=== PATIENT | male | born 1950 | race Caucasian/White ===

== ENCOUNTER 2018-05-19 08:31 | Inpatient (IN) | payer OTHER, MEDICARE ==
[~2018-05-19] VITALS: Ht 165.1 cm; Wt 70.4 kg
[2018-05-19 08:34] VITALS: Ht 165.1 cm; Wt 70.4 kg
[2018-05-19 09:22] LABS: BASOPHIL % 0.1 % (0-2); PLATELET COUNT 321 x10^3mcL (130-400); RED CELL DISTRIBUTION WIDTH 13.5 % (11.5-14.5)
[2018-05-19 09:29] LABS: CALCIUM 8.5 mg/dL (8.5-10.1); CARBON DIOXIDE 25.6 mmol/L (21-32); CHLORIDE SERUM 100 mmol/L (98-107); CREATININE SERUM 0.8 mg/dL (0.7-1.3); GFR1 > 60 mL/min; GLUCOSE SERUM 167 mg/dL (74-106); POTASSIUM SERUM 3.3 mmol/L (3.5-5.1); SODIUM SERUM 135 mmol/L (136-145)
[2018-05-19 09:33] LABS: ALBUMIN 3.4 g/dL (3.4-5.0); ALKALINE PHOSPHATASE 74 U/L (46-116); ALT/SGPT 18 U/L (16-63); AST/SGOT 20 U/L (15-37); BILIRUBIN TOTAL 0.42 mg/dL (0.20-1.00); CHOLESTEROL 191 mg/dL (<200); MAGNESIUM 1.6 mg/dL (1.8-2.4); PHOSPHOROUS 2.7 mg/dL (2.5-4.9); TOTAL PROTEIN, SERUM 7.7 g/dL (6.4-8.2)
[2018-05-19 09:34] LABS: HDL CHOLESTEROL 95 mg/dL (40-60)
[2018-05-19] MEDS ORDERED: NEU300 PO (10:06)
[2018-05-19] MEDS ORDERED: AMOXICILLIN500 MG PO (10:07)
[2018-05-19] MEDS ORDERED: GLUCOTROL10 MG PO (10:09)
[2018-05-19] MEDS ORDERED: PLA75 PO (10:10)
[2018-05-19] MEDS ORDERED: LOSARTAN POTASS50 M1 PO (10:10)
[2018-05-19] MEDS ORDERED: HYDROCHLOROTH12.5 M2 PO (10:12)
[2018-05-19 13:10] LABS: microscopic required? YES; urine erythrocyte TRACE (NEGATIVE)
[2018-05-19 17:19] LABS: CHOLESTEROL/HDL RATIO 2.1
[2018-05-19 17:24] LABS: T3 TOTAL 0.93 ng/mL
[2018-05-19 17:26] LABS: FREE T4 0.92 ng/dL (0.76-1.46); FREE THYROXINE INDEX 2.6 ug/dL (1.4-4.5); T4(THYROXINE) 7.1 ug/dL (4.7-13.3)
[2018-05-19 18:36] VITALS: BP 165/94
[2018-05-19 20:21] VITALS: BP 152/84
[2018-05-19 20:27] LABS: AMPHETAMINE QUAL UR NONE DETECTED (See below)
[2018-05-20] VITALS (7 sets, daily range): BP systolic 114–189; BP diastolic 81–102
[2018-05-20 15:20] LABS: CALCIUM 8.5 mg/dL (8.5-10.1); CHLORIDE SERUM 99 mmol/L (98-107); GFR1 > 60 mL/min; GLUCOSE SERUM 282 mg/dL (74-106); MAGNESIUM 1.7 mg/dL (1.8-2.4); PHOSPHOROUS 2.4 mg/dL (2.5-4.9); POTASSIUM SERUM 4.3 mmol/L (3.5-5.1); SODIUM SERUM 134 mmol/L (136-145)
[2018-05-20 15:25] LABS: BASOPHIL % 0.4 % (0-2); PLATELET COUNT 335 x10^3mcL (130-400); RED CELL DISTRIBUTION WIDTH 13.5 % (11.5-14.5)
[2018-05-21 05:49] VITALS: BP 171/95
[2018-05-21 06:45] LABS: BASOPHIL % 0.4 % (0-2); PLATELET COUNT 365 x10^3mcL (130-400); RED CELL DISTRIBUTION WIDTH 13.9 % (11.5-14.5)
[2018-05-21 07:14] LABS: CALCIUM 8.6 mg/dL (8.5-10.1); CARBON DIOXIDE 26.5 mmol/L (21-32); CHLORIDE SERUM 100 mmol/L (98-107); GFR1 > 60 mL/min; GLUCOSE SERUM 216 mg/dL (74-106); MAGNESIUM 1.7 mg/dL (1.8-2.4); PHOSPHOROUS 2.4 mg/dL (2.5-4.9); POTASSIUM SERUM 4.1 mmol/L (3.5-5.1); SODIUM SERUM 135 mmol/L (136-145)
[2018-05-21 09:53] VITALS: BP 165/83
[2018-05-21 12:10] VITALS: BP 180/94
[2018-05-21] MEDS ORDERED: ATORVASTATIN CA40 M1 PO (13:26)
[2018-05-21] MEDS ORDERED: COZ50 PO (13:26)
[2018-05-21] MEDS ORDERED: HYD25 PO (13:27)
[2018-05-21] MEDS ORDERED: PRE20 PO (13:29)
[2018-05-21 14:17] VITALS: BP 168/78
[2018-05-21 14:26] VITALS: BP 168/78
[2018-05-21 15:04] VITALS: BP 154/77
== END 2018-05-21 15:40 | disposition home or self-care (01) | DRG 53 ==
LOC: ED 08:31 → DU 17:14
PROVIDERS: Emergency Medicine; Internal Medicine; ADMIT Family Medicine
DX: R56.9 Unspecified convulsions (principal); N17.0 Acute kidney failure with tubular necrosis; G93.40 Encephalopathy, unspecified; H49.02 Third [oculomotor] nerve palsy, left eye; E11.21 Type 2 diabetes mellitus with diabetic nephropathy; E87.1 Hypo-osmolality and hyponatremia; E83.42 Hypomagnesemia; E87.6 Hypokalemia; H02.402 Unspecified ptosis of left eyelid; Z59.0 Homelessness; Z68.26 Body mass index [BMI] 26.0-26.9, adult; Z79.84 Long term (current) use of oral hypoglycemic drugs; Z86.73 Personal history of transient ischemic attack (TIA), and cerebral infarction without residual deficits
CPT/HCPCS: 82962; 83880; 84439; 87804; 97116-GP; 97530-GP; A9577; J0360; J3475; J7030; J7512; Q0092

== ENCOUNTER 2018-05-25 01:29 | Inpatient (IN) | payer OTHER, MEDICARE ==
[~2018-05-25] VITALS: Ht 165.1 cm; Wt 67.1 kg
[~2018-05-25 01:29] MED LIST: AMOXICILLIN500 MG PO; ATORVASTATIN CA40 M1 PO; COZ50 PO; GLUCOTROL10 MG PO; HYD25 PO; HYDROCHLOROTH12.5 M2 PO; LOSARTAN POTASS50 M1 PO; NEU300 PO; PLA75 PO; PRE20 PO
[2018-05-25 01:37] VITALS: Ht 165.1 cm; Wt 67.1 kg
[2018-05-25 02:18] LABS: BASOPHIL % 0.1 % (0-2); PLATELET COUNT 398 x10^3mcL (130-400); RED CELL DISTRIBUTION WIDTH 13.7 % (11.5-14.5)
[2018-05-25 03:03] LABS: ALBUMIN 3.7 g/dL (3.4-5.0); ALKALINE PHOSPHATASE 67 U/L (46-116); ALT/SGPT 26 U/L (16-63); AST/SGOT 36 U/L (15-37); BILIRUBIN TOTAL 0.51 mg/dL (0.20-1.00); CARBON DIOXIDE 30.1 mmol/L (21-32); CHLORIDE SERUM 101 mmol/L (98-107); GFR1 > 60 mL/min; POTASSIUM SERUM 3.1 mmol/L (3.5-5.1); SODIUM SERUM 138 mmol/L (136-145)
[2018-05-25 03:06] LABS: TOTAL PROTEIN, SERUM 8.3 g/dL (6.4-8.2)
[2018-05-25 03:07] LABS: GLUCOSE SERUM 41 mg/dL (74-106)
[2018-05-25 07:37] LABS: CHOLESTEROL/HDL RATIO 1.7
[2018-05-25 08:57] VITALS: BP 162/86
[2018-05-25 12:18] VITALS: BP 147/87
[2018-05-25 17:57] LABS: microscopic required? NO
[2018-05-25 18:20] LABS: urine erythrocyte NEGATIVE (NEGATIVE)
[2018-05-25 18:33] LABS: AMPHETAMINE QUAL UR NONE DETECTED (See below)
[2018-05-25 18:48] VITALS: BP 144/80
[2018-05-25 20:29] VITALS: BP 141/90
[2018-05-26 05:24] VITALS: BP 148/90
[2018-05-26 06:36] LABS: CALCIUM 8.7 mg/dL (8.5-10.1); CARBON DIOXIDE 28.9 mmol/L (21-32); CHLORIDE SERUM 103 mmol/L (98-107); CREATININE SERUM 0.9 mg/dL (0.7-1.3); GFR1 > 60 mL/min; GLUCOSE SERUM 182 mg/dL (74-106); MAGNESIUM 1.5 mg/dL (1.8-2.4); PHOSPHOROUS 2.5 mg/dL (2.5-4.9); POTASSIUM SERUM 3.6 mmol/L (3.5-5.1); SODIUM SERUM 137 mmol/L (136-145)
[2018-05-26 07:00] LABS: BASOPHIL % 0.4 % (0-2); PLATELET COUNT 359 x10^3mcL (130-400); RED CELL DISTRIBUTION WIDTH 13.3 % (11.5-14.5)
[2018-05-26 08:40] VITALS: BP 143/80
[2018-05-26 12:30] VITALS: BP 142/67
[2018-05-26 17:00] VITALS: BP 161/84
[2018-05-26 18:45] VITALS: BP 148/73
[2018-05-26 20:35] VITALS: BP 138/62
[2018-05-27 05:31] VITALS: BP 146/81
[2018-05-27 06:06] LABS: BASOPHIL % 0.2 % (0-2); PLATELET COUNT 325 x10^3mcL (130-400); RED CELL DISTRIBUTION WIDTH 13.6 % (11.5-14.5)
[2018-05-27 06:39] LABS: CALCIUM 8.2 mg/dL (8.5-10.1); CARBON DIOXIDE 28.9 mmol/L (21-32); CHLORIDE SERUM 105 mmol/L (98-107); CREATININE SERUM 0.9 mg/dL (0.7-1.3); GFR1 > 60 mL/min; GLUCOSE SERUM 144 mg/dL (74-106); MAGNESIUM 1.6 mg/dL (1.8-2.4); PHOSPHOROUS 2.3 mg/dL (2.5-4.9); POTASSIUM SERUM 4.1 mmol/L (3.5-5.1); SODIUM SERUM 141 mmol/L (136-145)
[2018-05-27 09:59] VITALS: BP 172/90
[2018-05-27 13:10] VITALS: BP 171/103
[2018-05-27 15:10] VITALS: BP 166/94
[2018-05-27 18:31] VITALS: BP 173/94
[2018-05-27 21:19] VITALS: BP 157/86
[2018-05-28 05:41] VITALS: BP 154/78
[2018-05-28 06:25] LABS: BASOPHIL % 0.4 % (0-2); PLATELET COUNT 346 x10^3mcL (130-400); RED CELL DISTRIBUTION WIDTH 13.1 % (11.5-14.5)
[2018-05-28 06:43] LABS: CALCIUM 8.4 mg/dL (8.5-10.1); CARBON DIOXIDE 29.2 mmol/L (21-32); CHLORIDE SERUM 104 mmol/L (98-107); CREATININE SERUM 0.8 mg/dL (0.7-1.3); GFR1 > 60 mL/min; GLUCOSE SERUM 79 mg/dL (74-106); MAGNESIUM 1.7 mg/dL (1.8-2.4); PHOSPHOROUS 2.9 mg/dL (2.5-4.9); POTASSIUM SERUM 3.4 mmol/L (3.5-5.1); SODIUM SERUM 141 mmol/L (136-145)
[2018-05-28 08:02] VITALS: BP 162/84
[2018-05-28 12:06] VITALS: BP 148/78
[2018-05-28 16:25] VITALS: BP 141/72
[2018-05-28 21:07] VITALS: BP 139/61
[2018-05-29 05:47] VITALS: BP 164/86
[2018-05-29 07:22] LABS: CALCIUM 8.5 mg/dL (8.5-10.1); CARBON DIOXIDE 29.7 mmol/L (21-32); CHLORIDE SERUM 104 mmol/L (98-107); CREATININE SERUM 0.8 mg/dL (0.7-1.3); GFR1 > 60 mL/min; GLUCOSE SERUM 132 mg/dL (74-106); SODIUM SERUM 140 mmol/L (136-145)
[2018-05-29 07:28] LABS: BASOPHIL % 0.6 % (0-2); PLATELET COUNT 386 x10^3mcL (130-400); RED CELL DISTRIBUTION WIDTH 12.7 % (11.5-14.5)
[2018-05-29 08:11] VITALS: BP 144/93
[2018-05-29 12:40] VITALS: BP 150/81
[2018-05-29 17:00] VITALS: BP 133/87
[2018-05-29 21:55] VITALS: BP 157/79
[2018-05-30 06:18] VITALS: BP 173/97
[2018-05-30 06:47] LABS: CALCIUM 8.6 mg/dL (8.5-10.1); CHLORIDE SERUM 99 mmol/L (98-107); CREATININE SERUM 0.8 mg/dL (0.7-1.3); GFR1 > 60 mL/min; GLUCOSE SERUM 254 mg/dL (74-106); POTASSIUM SERUM 4.4 mmol/L (3.5-5.1); SODIUM SERUM 136 mmol/L (136-145)
[2018-05-30 07:03] LABS: BASOPHIL % 0.5 % (0-2); PLATELET COUNT 378 x10^3mcL (130-400); RED CELL DISTRIBUTION WIDTH 13.5 % (11.5-14.5)
[2018-05-30 09:14] VITALS: BP 175/88
[2018-05-30 09:54] VITALS: BP 175/88
[2018-05-30] MEDS ORDERED: COZAAR100 MG PO (09:56)
[2018-05-30] MEDS ORDERED: KEPPRA500 MG PO (09:56)
[2018-05-30 10:30] VITALS: BP 180/90
[2018-05-30 10:35] VITALS: BP 184/94
== END 2018-05-30 10:54 | disposition left against medical advice (07) | DRG 420 ==
LOC: ED 01:29 → DU 06:45 → MU 06:45 → EDBEDREQTM 06:49 → EDBEDREQ 06:49 → EDBEDREQSVC 06:54 → EDBEDREQTM 06:54 → EDBEDREQ 06:54 → MU 07:52 → DU 08:56
PROVIDERS: Emergency Medicine; Family Medicine; ADMIT Internal Medicine
DX: E11.649 Type 2 diabetes mellitus with hypoglycemia without coma (principal); N17.0 Acute kidney failure with tubular necrosis; G93.41 Metabolic encephalopathy; H49.02 Third [oculomotor] nerve palsy, left eye; E86.0 Dehydration; E05.00 Thyrotoxicosis with diffuse goiter without thyrotoxic crisis or storm; E11.65 Type 2 diabetes mellitus with hyperglycemia; E11.41 Type 2 diabetes mellitus with diabetic mononeuropathy; G58.8 Other specified mononeuropathies; I66.12 Occlusion and stenosis of left anterior cerebral artery; E87.6 Hypokalemia; D72.829 Elevated white blood cell count, unspecified; I10 Essential (primary) hypertension; E78.5 Hyperlipidemia, unspecified; Z68.25 Body mass index [BMI] 25.0-25.9, adult; Z79.4 Long term (current) use of insulin; Z79.02 Long term (current) use of antithrombotics/antiplatelets; Z86.73 Personal history of transient ischemic attack (TIA), and cerebral infarction without residual deficits
CPT/HCPCS: 82962; 83880; 97110-GP; 97116-GP; 97530-GP; A9577; A9579; G0480; J3480; J3490; J7030; J7042; J7512

== ENCOUNTER 2018-06-10 09:41 | Inpatient (IN) | payer OTHER, MEDICARE ==
[~2018-06-10] VITALS: Ht 157.5 cm; Wt 65.6 kg
[~2018-06-10 09:41] MED LIST changes: +COZAAR100 MG PO; +KEPPRA500 MG PO
[2018-06-10 09:44] VITALS: Ht 157.5 cm; Wt 65.6 kg
[2018-06-10 10:31] LABS: BASOPHIL % 0.3 % (0-2); PLATELET COUNT 368 x10^3mcL (130-400); RED CELL DISTRIBUTION WIDTH 12.1 % (11.5-14.5)
[2018-06-10 10:41] LABS: ALBUMIN 3.7 g/dL (3.4-5.0); ALKALINE PHOSPHATASE 98 U/L (46-116); ALT/SGPT 46 U/L (16-63); AST/SGOT 19 U/L (15-37); BILIRUBIN TOTAL 1.39 mg/dL (0.20-1.00); CALCIUM 9.9 mg/dL (8.5-10.1); CARBON DIOXIDE 30.7 mmol/L (21-32); CHLORIDE SERUM 91 mmol/L (98-107); CREATININE SERUM 1.2 mg/dL (0.7-1.3); GFR1 > 60 mL/min; POTASSIUM SERUM 3.9 mmol/L (3.5-5.1); SODIUM SERUM 127 mmol/L (136-145)
[2018-06-10 10:46] LABS: GLUCOSE SERUM 477 mg/dL (74-106); TOTAL PROTEIN, SERUM 8.7 g/dL (6.4-8.2)
[2018-06-10 11:07] LABS: MAGNESIUM 1.7 mg/dL (1.8-2.4); T4(THYROXINE) 7.8 ug/dL (4.7-13.3)
[2018-06-10 11:25] LABS: AMPHETAMINE QUAL UR NONE DETECTED (See below)
[2018-06-10 13:36] LABS: microscopic required? YES; urine erythrocyte TRACE (NEGATIVE)
[2018-06-10 16:24] VITALS: BP 132/64
[2018-06-10 17:27] VITALS: BP 149/81
[2018-06-10 19:03] LABS: CALCIUM 8.7 mg/dL (8.5-10.1); CARBON DIOXIDE 29.5 mmol/L (21-32); CHLORIDE SERUM 100 mmol/L (98-107); GFR1 > 60 mL/min; GLUCOSE SERUM 369 mg/dL (74-106); POTASSIUM SERUM 4.2 mmol/L (3.5-5.1); SODIUM SERUM 136 mmol/L (136-145)
[2018-06-10 21:03] VITALS: BP 128/71
[2018-06-11 06:24] VITALS: BP 156/79
[2018-06-11 06:35] LABS: CALCIUM 8.4 mg/dL (8.5-10.1); CARBON DIOXIDE 27.3 mmol/L (21-32); CHLORIDE SERUM 103 mmol/L (98-107); CREATININE SERUM 0.9 mg/dL (0.7-1.3); GFR1 > 60 mL/min; GLUCOSE SERUM 184 mg/dL (74-106); MAGNESIUM 1.3 mg/dL (1.8-2.4); PHOSPHOROUS 2.5 mg/dL (2.5-4.9); POTASSIUM SERUM 3.9 mmol/L (3.5-5.1); SODIUM SERUM 139 mmol/L (136-145)
[2018-06-11 07:13] LABS: BASOPHIL % 0.3 % (0-2); PLATELET COUNT 312 x10^3mcL (130-400); RED CELL DISTRIBUTION WIDTH 12.8 % (11.5-14.5)
[2018-06-11 09:40] VITALS: BP 166/86
[2018-06-11 13:30] VITALS: BP 165/100
[2018-06-11] MEDS ORDERED: LANTUS100 U/ML SC (15:52)
[2018-06-11 17:34] VITALS: BP 139/66
[2018-06-11 21:19] VITALS: BP 114/69
[2018-06-12 04:52] VITALS: BP 106/41
[2018-06-12 06:31] LABS: BASOPHIL % 0.3 % (0-2); PLATELET COUNT 327 x10^3mcL (130-400); RED CELL DISTRIBUTION WIDTH 12.9 % (11.5-14.5)
[2018-06-12 06:40] LABS: CALCIUM 8.8 mg/dL (8.5-10.1); CARBON DIOXIDE 27.7 mmol/L (21-32); CHLORIDE SERUM 101 mmol/L (98-107); CREATININE SERUM 0.8 mg/dL (0.7-1.3); GFR1 > 60 mL/min; GLUCOSE SERUM 97 mg/dL (74-106); MAGNESIUM 1.6 mg/dL (1.8-2.4); PHOSPHOROUS 3.2 mg/dL (2.5-4.9); POTASSIUM SERUM 3.6 mmol/L (3.5-5.1); SODIUM SERUM 135 mmol/L (136-145)
[2018-06-12 08:48] VITALS: BP 151/86
[2018-06-12] MEDS ORDERED: HYDROCHLOROTH12.5 M2 PO (11:18)
[2018-06-12 11:59] VITALS: BP 141/77
[2018-06-12 14:22] VITALS: BP 141/77
== END 2018-06-12 15:51 | disposition home or self-care (01) | DRG 48 ==
LOC: ED 09:41 → DU 12:55
PROVIDERS: Emergency Medicine; ADMIT Family Medicine
DX: G90.9 Disorder of the autonomic nervous system, unspecified (principal); N17.0 Acute kidney failure with tubular necrosis; E11.00 Type 2 diabetes mellitus with hyperosmolarity without nonketotic hyperglycemic-hyperosmolar coma (NKHHC); G93.41 Metabolic encephalopathy; E11.65 Type 2 diabetes mellitus with hyperglycemia; E83.42 Hypomagnesemia; D68.69 Other thrombophilia; E87.1 Hypo-osmolality and hyponatremia; E86.0 Dehydration; G40.909 Epilepsy, unspecified, not intractable, without status epilepticus; I10 Essential (primary) hypertension; E78.5 Hyperlipidemia, unspecified; H02.402 Unspecified ptosis of left eyelid; E87.8 Other disorders of electrolyte and fluid balance, not elsewhere classified; Z68.25 Body mass index [BMI] 25.0-25.9, adult; Z79.84 Long term (current) use of oral hypoglycemic drugs; Z86.73 Personal history of transient ischemic attack (TIA), and cerebral infarction without residual deficits
CPT/HCPCS: 82962; 83880; G0480; J1815; J3475; J7030; Q0092

== ENCOUNTER 2018-06-27 18:38 | Emergency (ER) | payer MEDICARE, OTHER ==
[~2018-06-27] VITALS: Ht 170.2 cm; Wt 54.4 kg
[~2018-06-27 18:38] MED LIST changes: +LANTUS100 U/ML SC
[2018-06-27 19:13] VITALS: Ht 170.2 cm; Wt 54.4 kg
[2018-06-27 19:42] LABS: BASOPHIL % 0.2 % (0-2); PLATELET COUNT 318 x10^3mcL (130-400); RED CELL DISTRIBUTION WIDTH 13.1 % (11.5-14.5)
[2018-06-27 19:58] LABS: CARBON DIOXIDE 27.7 mmol/L (21-32); CHLORIDE SERUM 105 mmol/L (98-107); CREATININE SERUM 1.1 mg/dL (0.7-1.3); GFR1 > 60 mL/min; GLUCOSE SERUM 201 mg/dL (74-106); POTASSIUM SERUM 3.4 mmol/L (3.5-5.1); SODIUM SERUM 142 mmol/L (136-145)
[2018-06-27 20:03] LABS: ALKALINE PHOSPHATASE 75 U/L (46-116); ALT/SGPT 22 U/L (16-63); AST/SGOT 15 U/L (15-37); BILIRUBIN TOTAL 0.1 mg/dL (0.20-1.00); TOTAL PROTEIN, SERUM 7.2 g/dL (6.4-8.2)
[2018-06-27 20:05] LABS: ALBUMIN 3.3 g/dL (3.4-5.0)
[2018-06-27 22:24] VITALS: BP 101/70
== END 2018-06-27 22:24 | disposition home or self-care (01) ==
LOC: ED 18:38
PROVIDERS: Emergency Medicine
DX: K52.9 Noninfective gastroenteritis and colitis, unspecified (principal); E86.0 Dehydration; I10 Essential (primary) hypertension; E11.9 Type 2 diabetes mellitus without complications
CPT/HCPCS: J2405; J7030; Q0092

== ENCOUNTER 2018-10-07 03:07 | Inpatient (IN) | payer OTHER, MEDICARE ==
[~2018-10-07] VITALS: Ht 157.5 cm; Wt 65.1 kg
[2018-10-07 03:11] VITALS: Ht 157.5 cm; Wt 65.1 kg
[2018-10-07 04:00] LABS: BASOPHIL % 1.6 % (0-2); PLATELET COUNT 397 x10^3mcL (130-400); RED CELL DISTRIBUTION WIDTH 13.2 % (11.5-14.5)
[2018-10-07 04:15] LABS: CALCIUM 8.9 mg/dL (8.5-10.1); CARBON DIOXIDE 26.8 mmol/L (21-32); CHLORIDE SERUM 103 mmol/L (98-107); CREATININE SERUM 0.8 mg/dL (0.7-1.3); GFR1 > 60 mL/min; GLUCOSE SERUM 161 mg/dL (74-106); POTASSIUM SERUM 3.1 mmol/L (3.5-5.1); SODIUM SERUM 141 mmol/L (136-145)
[2018-10-07 04:20] LABS: ALBUMIN 3.6 g/dL (3.4-5.0); ALKALINE PHOSPHATASE 70 U/L (46-116); ALT/SGPT 22 U/L (16-63); AST/SGOT 17 U/L (15-37); BILIRUBIN TOTAL 0.34 mg/dL (0.20-1.00); TOTAL PROTEIN, SERUM 7.7 g/dL (6.4-8.2)
[2018-10-07 04:53] LABS: UA SPECIFIC GRAVITY >=1.030 (1.005-1.035); microscopic required? YES; urine erythrocyte TRACE (NEGATIVE)
[2018-10-07 05:00] LABS: AMPHETAMINE QUAL UR NONE DETECTED (See below)
[2018-10-07 07:48] VITALS: BP 113/76
[2018-10-07 08:49] LABS: FREE T4 1.1 ng/dL (0.76-1.46); FREE THYROXINE INDEX 2.7 ug/dL (1.4-4.5); T4(THYROXINE) 8.2 ug/dL (4.7-13.3)
[2018-10-07 08:52] LABS: MAGNESIUM 1.6 mg/dL (1.8-2.4); PHOSPHOROUS 2.6 mg/dL (2.5-4.9)
[2018-10-07 08:54] LABS: CHOLESTEROL/HDL RATIO 2.2
[2018-10-07 11:00] LABS: UA SPECIFIC GRAVITY >=1.030 (1.005-1.035); microscopic required? YES; urine erythrocyte TRACE (NEGATIVE)
[2018-10-07 13:05] VITALS: BP 180/88
[2018-10-07 14:35] VITALS: BP 162/80
[2018-10-07 17:35] VITALS: BP 168/91; BP 96/64
[2018-10-07 22:39] VITALS: BP 148/71
[2018-10-08 05:32] VITALS: BP 130/79
[2018-10-08 06:31] LABS: BASOPHIL % 0.6 % (0-2); PLATELET COUNT 355 x10^3mcL (130-400); RED CELL DISTRIBUTION WIDTH 13.7 % (11.5-14.5)
[2018-10-08 06:58] LABS: CALCIUM 9.1 mg/dL (8.5-10.1); CHLORIDE SERUM 104 mmol/L (98-107); CREATININE SERUM 0.8 mg/dL (0.7-1.3); GFR1 > 60 mL/min; GLUCOSE SERUM 248 mg/dL (74-106); POTASSIUM SERUM 4.2 mmol/L (3.5-5.1); SODIUM SERUM 139 mmol/L (136-145)
[2018-10-08 07:25] LABS: CARBON DIOXIDE 23.4 mmol/L (21-32)
[2018-10-08 09:47] VITALS: BP 149/77
[2018-10-08 12:03] VITALS: BP 155/80
[2018-10-08 13:20] VITALS: BP 155/80
== END 2018-10-08 16:06 | disposition home or self-care (01) | DRG 420 ==
LOC: ED 03:07 → DU 06:29
PROVIDERS: Emergency Medicine; Internal Medicine; ADMIT General Practice
DX: E11.649 Type 2 diabetes mellitus with hypoglycemia without coma (principal); H49.00 Third [oculomotor] nerve palsy, unspecified eye; N39.0 Urinary tract infection, site not specified; G40.909 Epilepsy, unspecified, not intractable, without status epilepticus; E87.6 Hypokalemia; Z79.4 Long term (current) use of insulin; Z79.84 Long term (current) use of oral hypoglycemic drugs; Z86.73 Personal history of transient ischemic attack (TIA), and cerebral infarction without residual deficits
CPT/HCPCS: 82962; 83880; 84439; G0480; J0360; J1956; J7030; Q0092

== ENCOUNTER 2019-01-23 09:09 | Inpatient (IN) | payer OTHER, MEDICARE ==
[~2019-01-23] VITALS: Ht 157.5 cm; Wt 74.8 kg
[~2019-01-23 09:09] MED LIST changes: -KEPPRA500 MG PO
[2019-01-23 09:28] VITALS: Ht 157.5 cm; Wt 74.8 kg
--- NOTE | 2019-01-23 09:32 | NUR ---
AGENCY DOCUMENTATION DONE BY Staff Name/Title - : MARLENA RODRIGUEZ JR/JESSE [employer] User ID - : [id number] Agency Name - : [employer] Time Documented - From - : 699 To - : 1929
--- NOTE | 2019-01-23 09:32 | NUR ---
ASSUMED PATIENT CARE, NURSING ASSESSMENT COMPLETED.
[2019-01-23 10:58] LABS: BASOPHIL % 0.3 % (0-2); PLATELET COUNT 307 x10^3mcL (130-400); RED CELL DISTRIBUTION WIDTH 13.5 % (11.5-14.5)
[2019-01-23 11:21] LABS: CALCIUM 8.3 mg/dL (8.5-10.1); CARBON DIOXIDE 29.1 mmol/L (21-32); CHLORIDE SERUM 98 mmol/L (98-107); CREATININE SERUM 0.9 mg/dL (0.7-1.3); GFR1 > 60 mL/min; GLUCOSE SERUM 355 mg/dL (74-106); POTASSIUM SERUM 4.1 mmol/L (3.5-5.1); SODIUM SERUM 135 mmol/L (136-145)
[2019-01-23 11:31] LABS: microscopic required? NO
[2019-01-23 11:33] LABS: ALBUMIN 3.3 g/dL (3.4-5.0); ALKALINE PHOSPHATASE 80 U/L (46-116); ALT/SGPT 29 U/L (16-63); AST/SGOT 16 U/L (15-37); BILIRUBIN TOTAL 0.66 mg/dL (0.20-1.00); CHOLESTEROL 172 mg/dL (<200); HDL CHOLESTEROL 69 mg/dL (40-60); LIPASE 63 IU/L (73-393); MAGNESIUM 1.7 mg/dL (1.8-2.4); T4(THYROXINE) 7.6 ug/dL (4.7-13.3); TOTAL PROTEIN, SERUM 7.3 g/dL (6.4-8.2)
[2019-01-23 12:09] LABS: urine erythrocyte NEGATIVE (NEGATIVE)
[2019-01-23 12:31] LABS: AMPHETAMINE QUAL UR NONE DETECTED (See below)
--- NOTE | 2019-01-23 12:36 | NUR ---
SLEEPING, EASILY AROUSABLE, NO SIGNS OF DISTRESS NOTED., NSR ON THERAPEUTIC RECREATION LEADER.
--- NOTE | 2019-01-23 15:29 | NUR ---
DISPO AND MEDICAL DECISION MAKING, INPATIENT ADMISSION FOR FURTHER MANAGEMENT. PATIENT CARE REPORT TO MIRIAM, CONTINUITY OF CARE ENDORSED. PATIENT UPDATED ACCORDINGLY.
[2019-01-23 15:38] LABS: CHOLESTEROL/HDL RATIO 2.8; PHOSPHOROUS 2.5 mg/dL (2.5-4.9)
[2019-01-23 16:37] VITALS: BP 179/88
--- NOTE | 2019-01-23 16:52 | NUR ---
RECEIVED PT FROM ER, PT ADMIT FOR METABOLIC ENCEPHALOPATHY, UNCONTROLLED DM, PT IS A/O X3, SLOW RESPONSIVE, HAD SEIZURE X 2 IN ER. LUNG SOUND CLEAR BILATEARL, NO COUGH, NO SOB, PT IS ON 2L/MIN O2 VIA NC, PO2 100%, PT IS ON TELE 18, NSR, DENY ANY CHEST PAIN OR DISCOMFORT, BOWEL SOUND PRESENT ALL 4 QUADRANTS, NO DISTENTION, NO TENDER. PEDAL PULSE PRESENT BOTH FEET, NO EDEMA, IV AT RIGHT HAND, NO LEAKING, NO INFILTRATION. THERE IS ECCHYMOSIS AT RIGHT HEAD, PT STATE HAS FALL IN THE AM PIOR TO ER. ALL ADLS ASSIST, ALL NEED MET, CALL LIGHT IN REACH, WILL CONTINUE TO MONITOR.
--- NOTE | 2019-01-23 16:52 | NUR ---
ASSUMED CARE OF PATIENT. PHYSICAL THERAPY WITH PATIENT. IV ACCESS LEFT HAND CDI, INFUSING NS AT 100ML/HR. DUE MED ADMINISTERED. PT TOLERATED MED WELL. NO DISCOMFORT NOTED AT THIS TIME. SEIZURE PRECAUTIONS IN PLACE, BED LOW AND LOCKED. CALL LIGHT WITHIN REACH.
[2019-01-23 18:00] VITALS: BP 170/91
--- NOTE | 2019-01-23 18:05 | NUR ---
PT BLOOD PRESSURE 170/91 (115), HR 75. DR HAILE ROQUE.
--- NOTE | 2019-01-23 18:47 | NUR ---
NEW ORDER TO START COZAAR TODAY. PT STABLE AT THIS TIME. WILL CONTINUE TO MONITOR AND ENDORSE CARE TO BARREL LEVELER.
--- NOTE | 2019-01-23 19:06 | NUR ---
DR CRAWFORDED AWARE OF PT BLOOD PRESSURE AND MAG 1.7.
--- NOTE | 2019-01-23 19:20 | NUR ---
REC'D PT FROM DAY NURSE. PT RESTING IN BED. DROWSY. AWAKENS WITH VERBAL STIMULI BUT QUICKLY FALLS BACK ASLEEP. MUMBLED SPEECH. UNABLE TO ASSESS ORIENTATION AT THIS TIME D/T DROWSINESS. FOLLOWS COMMANDS. NO FACIAL DROOP NOTED. L PUPIL EYE SHAPE IRREGULAR BUT REACTIVE TO LIGHT. TELE 18. NO S/SX OF CP. BREATHING EVEN/UNLABORED ON RA. ABD SOFT/ROUND/NONTENDER. VOIDING FREELY. GEN WEAKNESS. UP WITH PT. IV TO LH PATENT AND INFUSING, SITE WNL. CALL LIGHT WITHIN REACH, BED AT LOWEST POSITION, BED ALARM ON. WILL CONTINUE TO MONITOR.
[2019-01-23 20:08] VITALS: BP 125/69
--- NOTE | 2019-01-23 21:12 | NUR ---
PT SNORING. VERY LETHARGIC AND ONLY RAISES EYEBROWS TO STERNAL RUB. UNABLE TO KEEP EYES OPEN. UNSAFE TO GIVE PO MEDS D/T DROWSINESS AND HELD. BS 177. SPOKE TO DR. OLIVA AND MADE AWARE
--- NOTE | 2019-01-23 21:30 | NUR ---
DR. OLIVA AT BEDSIDE TO ASSESS THE PT. NO CHANGES IN ORDERS. CHARGE NURSE AWARE. PT ABLE TO WAKE UP BRIEFLY WITH PAINFUL STIMULI TO FEET. BREATHING EVEN/UNLABORED ON 2L O2 VIA NC. WILL CONTINUE TO MONITOR.
--- NOTE | 2019-01-24 01:07 | NUR ---
PT RESTING IN BED WITH EYES CLOSED. HOB UP. BREATHING EVEN/UNLABORED ON 2L O2 VIA NC. CALL LIGHT WITHIN REACH, BED AT LOWEST POSITION, BED ALARM ON. WILL CONTINUE TO MONITOR.
[2019-01-24 05:07] VITALS: BP 163/77
--- NOTE | 2019-01-24 05:32 | NUR ---
PT SLEEPING. AWAKENS WITH VERBAL STIMILI. ALERT AND RESPONSIVE. DENIES ANY PAIN OR DIZZINESS. NO COMPLAINTS AT THIS TIME. BS 149. BP ELEVATED 163/77. COZAAR 100 MG GIVEN EARLY. SPOKE TO DR. OLIVA AND MADE AWARE.
[2019-01-24 06:44] VITALS: BP 155/78
--- NOTE | 2019-01-24 07:30 | NUR ---
RC'D PT RESTING IN BED WITH NO APPARENT SIGNS OF DISTRESS/ A/A/ OX4, SPEECH CLEAR AND APPROPRIATE. PT DENIES CEBALLOS/DIZZINESS AT THIS TIME. SEIZURE PRECUATIONS IN PLACE. ON TELE, NSR, DENIES CP. PALP PULSES, NO EDEMA NOTED. RESPIRATIONS EQUAL AND UNLAORED. LUNGS CTA. ON RA, DENIES SOB. ABDOMEN SOFT AND NONTENDER. ACTIVE BS. DENIES N/V. VIODS FREELY, DENIES BURNING. GENERALIZED WEAKNESS. RIGHT FACIAL ABRASION, NGUYỄN. PT DENIES PAIN AT THIS TIME. IV PATENT AND INTACT. BED IN LOW POSTIION. CALL LIGHT IN REACH. WILL CONT TO MONITOR
--- NOTE | 2019-01-24 08:26 | NUR ---
AM MEDICATIONS GIVEN. PT TOLERATED WELL. RESPIRATIONS E/U. ON 2L O2, PT DENIES SOB. PT DENIES PAIN AT THIS TIME. BED IN LOW POSITION. CALL LIGHT IN REACH. WILL CONT TO MONITOR
[2019-01-24 08:55] VITALS: BP 166/78
--- NOTE | 2019-01-24 11:42 | NUR ---
PT RESTING IN BED WITH NO APPARENT SIGNS OF DISTRESS. RESPIRATIONS EQUAL AND UNLABORED. ON RA,D ENIES SOB. PT DENIES PAIN AT THIS TIME. BED IN LOW POSITION. CALL LIGHTIN REACH. WILL CONT TO MONITOR
--- NOTE | 2019-01-24 12:10 | NUR ---
PHYSICAL THERAPY COMPLETE AT THIS TIME. PER PT PATIENTS BP ELEVATED. NO PRN MEDS AT THIS TIME. DR VELEZ PAGED AT THIS TIME. AWAITING CALL BACK
[2019-01-24 12:54] VITALS: BP 163/88
--- NOTE | 2019-01-24 15:31 | NUR ---
TELE PSYCH INITIATED AT THIS TIME. AWAITING CALL BACK
[2019-01-24 17:16] VITALS: BP 146/62
--- NOTE | 2019-01-24 18:05 | NUR ---
TELE NEURO COMPLETE. MD TO SPEAK WITH ATTENDING REGARDING RESULTS
--- NOTE | 2019-01-24 18:22 | NUR ---
PT RESTING IN BED WITH NO APPARENT SIGNS OF DISTRESS. ON TELE, DENIES CP. RESPIRATIONS EQUAL AND UNLABORED. PT DENIES SOB. GENERALIZED WEAKNESS. AMB WITH ASSIST TO BR. NO ACUTE SKIN CHANGES NOTED AT THIS TIME. PT DENIES PAIN. IV PATENT AND INTACT. BED IN LOW POSITION. CALL LIGHT IN REACH. WILL ENDORSE TO PUBLIC ADDRESS SYSTEM INSTALLER RN
--- NOTE | 2019-01-24 19:30 | NUR ---
REC'D PT FROM DAY NURSE. PT RESTING IN BED. ORIENTED TO SELF, PLACE, AND TIME. FOLLOWS COMMANDS. SPEECH CLEAR. L PUPIL IRREGULARLY SHAPED BUT RESPONSIVE TO LIGHT. TELE 18. DENIES CP, DIZZINESS, OR PALPITATIONS. DENIES RESP DISTRESS OR SOB. BREATHING EVEN/UNLABORED ON RA. ABD SOFT/ROUND. DENIES ABD PAIN, TENDERNESS OR N/V. VOIDING FREELY. EQUAL HAND LEAD WAREHOUSE ASSOCIATE. PT ABLE TO MOVE ALL EXTREMITIES. DENIES NUMBING OR TINGLING. R FACIAL ABRASIONS. NO OPEN WOUNDS OR LESIONS. IV TO LH FLUSHED AND PATENT. SITE WNL. CALL LIGHT WITHIN REACH, BED AT LOWEST POSITION. WILL CONTINUE TO MONITOR.
[2019-01-24 20:21] VITALS: BP 116/72
--- NOTE | 2019-01-25 00:28 | NUR ---
PT RESTING IN BED WITH EYES CLOSED. LAYING ON R SIDE. QUIETLY SNORING. NO SIGNS OF DISTRESS NOTED. BREATHING EVEN/UNLABORED ON RA. CALL LIGHT WITHIN REACH, BED AT LOWEST POSITION. WILL CONTINUE TO MONITOR.
[2019-01-25 05:53] VITALS: BP 157/84
--- NOTE | 2019-01-25 06:07 | NUR ---
PT RESTING IN BED WITH EYES CLOSED. AWAKENS WITH VERBAL STIMULI. BREATHING EVEN/UNLABORED ON RA. NO COMPLAINTS AT THIS TIME. DENIES ANY CEBALLOS, DIZZINESS, OR NUMBING TO EXTREMITIES. NO SIGNIFICANT CHANGES DURING SHIFT. CALL LIGHT WITHIN REACH, BED AT LOWEST POSITION. WILL ENDORSE TO DAY NURSE.
[2019-01-25 06:39] LABS: BASOPHIL % 0.5 % (0-2); PLATELET COUNT 306 x10^3mcL (130-400); RED CELL DISTRIBUTION WIDTH 13.8 % (11.5-14.5)
[2019-01-25 06:45] LABS: CALCIUM 8.5 mg/dL (8.5-10.1); CARBON DIOXIDE 28.8 mmol/L (21-32); CHLORIDE SERUM 105 mmol/L (98-107); CREATININE SERUM 0.8 mg/dL (0.7-1.3); GFR1 > 60 mL/min; GLUCOSE SERUM 172 mg/dL (74-106); MAGNESIUM 1.6 mg/dL (1.8-2.4); PHOSPHOROUS 3.2 mg/dL (2.5-4.9); POTASSIUM SERUM 4.1 mmol/L (3.5-5.1); SODIUM SERUM 141 mmol/L (136-145)
--- NOTE | 2019-01-25 07:05 | NUR ---
RECIEVED PT RESTING IN BED WITH NO C/O PAIN OR DISTRESS. A/O X3 WITH NO CEBALLOS OR DIZZINESS. TELE #18 CONNECTED TO PT, DENIES CP OR PRESSURE. PT ON RA SAT AT 94% WITH NO SOB. SALINE LOCK ON LH [place]TACT AND PATENT WITH NO REDNESS OR INFLAMMATION. SAFETY PRECAUTIONS IN PLACE, CALL LIGHT WITHIN REACH, WILL ASSESS FURTHER AND MONITOR.
[2019-01-25 08:56] VITALS: BP 143/74
[2019-01-25 09:01] VITALS: BP 139/60
--- NOTE | 2019-01-25 10:00 | NUR ---
PT RESTING IN BED WITH NO C/O PAIN OR DISTRESS. SAFETY PRECAUTIONS IN PLACE, CALL LIGHT WITHIN REACH, WILL MONITOR.
[2019-01-25] MEDS ORDERED: KEPPRA1000 M1 PO (11:01)
[2019-01-25 12:08] VITALS: BP 143/74
[2019-01-25 12:28] VITALS: BP 143/74
[2019-01-25 12:30] VITALS: BP 151/68
--- NOTE | 2019-01-25 13:25 | NUR ---
PT STABLE TO DISCHARGE PER MD ORDER. ALL DISCHARGE INSTRUCTIONS, EDUCATION, AND PRESCRIPTIONS GIVEN TO PT AND HE VEBALIZES UNDERSTANDING. IV REMOVED WITH CATHETER INTACT AND NO REDNESS OR INFLAMMATION NOTED. ID BANDS REMOVED FROM PT ARM. PT ESCORTED DOWN TO LOBBY VIA WC BY TEAM ASSISTANT WITH ALL PERSONAL BELONGINGS IN HAND.
== END 2019-01-25 13:35 | disposition still patient (30) | DRG 53 ==
LOC: ED 09:09 → DU 14:45
PROVIDERS: Emergency Medicine; ADMIT Internal Medicine
DX: G40.409 Other generalized epilepsy and epileptic syndromes, not intractable, without status epilepticus (principal); G93.41 Metabolic encephalopathy; H49.00 Third [oculomotor] nerve palsy, unspecified eye; E11.40 Type 2 diabetes mellitus with diabetic neuropathy, unspecified; E11.65 Type 2 diabetes mellitus with hyperglycemia; E44.1 Mild protein-calorie malnutrition; E87.1 Hypo-osmolality and hyponatremia; E83.51 Hypocalcemia; E83.42 Hypomagnesemia; I10 Essential (primary) hypertension; E78.5 Hyperlipidemia, unspecified; E66.9 Obesity, unspecified; Z86.73 Personal history of transient ischemic attack (TIA), and cerebral infarction without residual deficits; Z79.4 Long term (current) use of insulin; Z79.02 Long term (current) use of antithrombotics/antiplatelets; Z59.0 Homelessness; Z68.25 Body mass index [BMI] 25.0-25.9, adult; Z68.30 Body mass index [BMI] 30.0-30.9, adult
CPT/HCPCS: 36600; 82962; 90715; 90732; 97116-GP; G0378; G0480; J1815; J1953; J2060; J3475; J7030; Q0092

== ENCOUNTER 2019-02-26 14:49 | Inpatient (IN) | payer OTHER, MEDICARE ==
[~2019-02-26] VITALS: Ht 157.5 cm; Wt 61.7 kg
[~2019-02-26 14:49] MED LIST changes: +KEPPRA1000 M1 PO
[2019-02-26 14:55] VITALS: Ht 157.5 cm; Wt 61.7 kg
[2019-02-26 15:43] LABS: BASOPHIL % 0.4 % (0-2); PLATELET COUNT 279 x10^3mcL (130-400); RED CELL DISTRIBUTION WIDTH 13.6 % (11.5-14.5)
[2019-02-26 15:48] LABS: CALCIUM 7.8 mg/dL (8.5-10.1); CARBON DIOXIDE 28.6 mmol/L (21-32); CREATININE SERUM 1.6 mg/dL (0.7-1.3); POTASSIUM SERUM 3.2 mmol/L (3.5-5.1)
[2019-02-26 15:53] LABS: BILIRUBIN TOTAL 0.4 mg/dL (0.20-1.00); TOTAL PROTEIN, SERUM 6.2 g/dL (6.4-8.2)
[2019-02-26 15:58] LABS: ALBUMIN 2.8 g/dL (3.4-5.0)
[2019-02-26 18:34] VITALS: BP 110/65
[2019-02-26 18:39] VITALS: BP 110/65
[2019-02-26 22:37] VITALS: BP 122/68
[2019-02-27 06:37] VITALS: BP 127/72
[2019-02-27 06:56] LABS: CALCIUM 7.9 mg/dL (8.5-10.1); CARBON DIOXIDE 25.4 mmol/L (21-32); CHLORIDE SERUM 110 mmol/L (98-107); GFR1 > 60 mL/min; GLUCOSE SERUM 115 mg/dL (74-106); MAGNESIUM 1.7 mg/dL (1.8-2.4); PHOSPHOROUS 2.5 mg/dL (2.5-4.9); POTASSIUM SERUM 4.1 mmol/L (3.5-5.1); SODIUM SERUM 142 mmol/L (136-145)
[2019-02-27 07:12] LABS: BASOPHIL % 0.5 % (0-2); PLATELET COUNT 264 x10^3mcL (130-400); RED CELL DISTRIBUTION WIDTH 13.5 % (11.5-14.5)
[2019-02-27 08:05] VITALS: BP 138/74
[2019-02-27 11:26] LABS: microscopic required? NO
[2019-02-27 11:48] LABS: UA SPECIFIC GRAVITY 1.025 (1.005-1.035); urine erythrocyte NEGATIVE (NEGATIVE)
[2019-02-27 12:12] LABS: AMPHETAMINE QUAL UR NONE DETECTED (See below)
[2019-02-27 16:51] VITALS: BP 156/79
[2019-02-27 19:22] VITALS: BP 156/85
[2019-02-28 05:06] VITALS: BP 166/85
[2019-02-28 06:51] LABS: BASOPHIL % 0.6 % (0-2); PLATELET COUNT 284 x10^3mcL (130-400); RED CELL DISTRIBUTION WIDTH 13.5 % (11.5-14.5)
[2019-02-28 07:38] LABS: CALCIUM 8.5 mg/dL (8.5-10.1); CARBON DIOXIDE 26.2 mmol/L (21-32); CHLORIDE SERUM 106 mmol/L (98-107); CREATININE SERUM 0.7 mg/dL (0.7-1.3); GFR1 > 60 mL/min; GLUCOSE SERUM 193 mg/dL (74-106); MAGNESIUM 1.5 mg/dL (1.8-2.4); PHOSPHOROUS 2.4 mg/dL (2.5-4.9); POTASSIUM SERUM 4.7 mmol/L (3.5-5.1); SODIUM SERUM 139 mmol/L (136-145)
[2019-02-28 08:32] VITALS: BP 161/92
[2019-02-28 12:38] VITALS: BP 161/92
[2019-02-28] MEDS ORDERED: KEPPRA500 MG PO (12:45)
== END 2019-02-28 15:20 | disposition home or self-care (01) | DRG 52 ==
LOC: ED 14:49 → MU 17:00
PROVIDERS: Emergency Medicine; ADMIT Internal Medicine
DX: G93.41 Metabolic encephalopathy (principal); E11.42 Type 2 diabetes mellitus with diabetic polyneuropathy; E11.65 Type 2 diabetes mellitus with hyperglycemia; E86.0 Dehydration; A08.4 Viral intestinal infection, unspecified; E83.42 Hypomagnesemia; E44.1 Mild protein-calorie malnutrition; G40.909 Epilepsy, unspecified, not intractable, without status epilepticus; E78.5 Hyperlipidemia, unspecified; I10 Essential (primary) hypertension; Z79.4 Long term (current) use of insulin; Z68.25 Body mass index [BMI] 25.0-25.9, adult; Z79.84 Long term (current) use of oral hypoglycemic drugs; Z86.73 Personal history of transient ischemic attack (TIA), and cerebral infarction without residual deficits
CPT/HCPCS: 82962; 83880; G0378; J1815; J1885; J2405; J3475; J7030